=== PATIENT | male | born 1985 | race Caucasian/White ===

== ENCOUNTER 2016-06-30 15:32 | Emergency (ER) | payer SELFPAY ==
[~2016-06-30] VITALS: Ht 170.2 cm; Wt 70.5 kg
[~2016-06-30 15:32] MED LIST: AMOX875T PO; BACI500O9 TOP; CEPH500C3 PO; CLIN1CAP5 PO; HYDR-3533 PO; IBUP800T23 PO; NAPR500 PO
[2016-06-30 15:35] VITALS: BP 136/73; PULSE 91; RESP 16; TEMP 98.6; O2SAT 99
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
[2016-06-30] MEDS ORDERED: TETANUS/DIPHTHERIA TOXOID ADULT 0.5 ML VIAL IM ONE (16:30)
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
[2016-06-30] MEDS: ACETAMINOPHEN 325 MG TAB PO ONE (16:52)
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
[2016-06-30] MEDS ORDERED: IBUP800T23 PO (17:46)
== END 2016-06-30 18:04 | disposition home or self-care (01) ==
LOC: NEPK 15:32
DX: S00.33XA Contusion of nose, initial encounter (principal); F90.9 Attention-deficit hyperactivity disorder, unspecified type; Y04.2XXA Assault by strike against or bumped into by another person, initial encounter; Z72.0 Tobacco use
CPT/HCPCS: 70160; 99284